=== PATIENT | female | born 1945 | race American Indian/Alaskan Native ===

== ENCOUNTER 2024-10-02 09:15 | Day surgery (SDC) | payer BC, OTHER ==
[2024-10-02] MEDS ORDERED: fentaNYL 100 MCG/2 ML SDV IV ONE (09:16)
[2024-10-02] MEDS ORDERED: Midazolam 1 MG/ML 2 ML SDV IV ONE (09:16)
[2024-10-02] MEDS ORDERED: Lactated Ringers 1,000 ML IV PRN (09:45)
[2024-10-02] MEDS ORDERED: Sodium Chloride 0.9% 10 ML Syringe FLUSH PRN (09:45)
[2024-10-02] MEDS: acetaZOLAMIDE 500 MG Cap.ER PO ONE (11:38)
== END 2024-10-02 11:53 | disposition home or self-care (01) ==
LOC: FB.SDS 09:15
PROVIDERS: ATTEND Ophthalmology
DX: H25.813 Combined forms of age-related cataract, bilateral (principal); I10 Essential (primary) hypertension; E03.9 Hypothyroidism, unspecified; I25.10 Atherosclerotic heart disease of native coronary artery without angina pectoris; Z79.899 Other long term (current) drug therapy; Z79.890 Hormone replacement therapy; Z87.891 Personal history of nicotine dependence
CPT/HCPCS: 00142; 66984; 99100; A9270; J2250; J3010; V2632

== ENCOUNTER 2024-10-16 08:36 | Day surgery (SDC) | payer BC, OTHER ==
[~2024-10-16 08:36] MED LIST: Lactated Ringers 1,000 ML IV PRN; Sodium Chloride 0.9% 10 ML Syringe FLUSH PRN
[2024-10-16] MEDS ORDERED: fentaNYL 100 MCG/2 ML SDV IV ONE (08:37)
[2024-10-16] MEDS ORDERED: Midazolam 1 MG/ML 2 ML SDV IV ONE (08:37)
[2024-10-16] MEDS: acetaZOLAMIDE 500 MG Cap.ER PO ONE (10:42)
== END 2024-10-16 10:58 ==
LOC: FB.SDS 08:36
PROVIDERS: ATTEND Ophthalmology
DX: H26.9 Unspecified cataract (principal); E03.9 Hypothyroidism, unspecified; Z79.899 Other long term (current) drug therapy; Z79.890 Hormone replacement therapy; Z87.891 Personal history of nicotine dependence
CPT/HCPCS: 00142; 66984; 99100; A9270; J2250; J3010; V2632